=== PATIENT | male | born 1975 | race Caucasian/White ===

== ENCOUNTER 2018-07-20 10:18 | Emergency (ER) | payer OTHER ==
[2018-07-20 10:56] VITALS: BP 128/81; PULSE 80; TEMP 98.3; BMI 24.8
[2018-07-20] MEDS ORDERED: LIDOCAINE 1%/EPI 1:100000 (20 ML MULTI DOSE VIAL) ONE (11:27)
--- NOTE | 2018-07-20 11:40 | PDOC ---
History of Present Illness - General Chief Complaint: Pain Stated Complaint: PERIRECTAL ABSCESS Time Seen by Provider: 07/20/18 11:09 - History of Present Illness Initial Comments: Without significant comorbidities presents for evaluation of painful area around the rectum for the last 3 days. No other associated symptoms. 07/20/18 11:19 Past History - Past Medical History Allergies/Adverse Reactions: Allergies Allergy/AdvReac Type Severity Reaction Status Date / Time No Known Allergies Allergy Verified 07/20/18 10:47 Home Medications: Ambulatory Orders Amox-Tr/K Cl [Augmentin - 875Mg Tablet] 1 tab PO BID #10 tablet 07/20/18 - Suicide/Smoking/Psychosocial Hx Smoking History: Never smoked Hx Alcohol Use: No Drug/Substance Use Hx: No Review of Systems - Review of Systems Integumentary: Yes: See HPI, Lesions All Other Systems: Reviewed and Negative *Physical Exam - Vital Signs Last Vital Signs Temp Pulse Resp BP Pulse Ox 98.3 F 80 16 128/81 100 07/20/18 10:40 07/20/18 10:40 07/20/18 10:40 07/20/18 10:40 07/20/18 10:40 - Physical Exam Comments: 07/20/18 11:19 HEAD: NC/AT EYES: Conjuntiva clear MS: Full ROM in all joints without edema NEUROLOGIC: No gross sensory or motor deficits, NVID SKIN: Normal color and temperature no lesions or rashes There is an erythemic painful fluctuant area at the 5 o'clock position abutting the anal verge with surrounding erythema there is no induration there is mild warmth. Medical Decision Making - Medical Decision Making 07/20/18 11:15 [facility] group [facility] operator notified about pt. ([facility]) 07/20/18 11:40 [facility] preformed I&D *DC/Admit/Observation/Transfer Diagnosis at time of Disposition: Anal abscess - Discharge Dispostion Disposition: HOME Condition at time of disposition: Stable Decision to Admit order: No - Referrals Referrals: Best Marquez MD [Primary Care Provider] - Jerson Mosley MD [Staff Physician] - - Patient Instructions Additional Instructions: Please take the antibiotics as directed. Return to the ER should symptoms worsen. Please wash the area with soap and water FD her first bowel movement. Follow-up with surgery as discussed. Tylenol and Motrin for pain as directed. - Post Discharge Activity
--- NOTE | 2018-07-20 11:44 | CONSULT ---
Consult Consult Specialty:: General Surgery Reason for Consultation:: perianal abscess - History of Present Illness Chief Complaint: perianal abscess History of Present Illness: 42 yo male with no significant PMH presented to fast track ED with painful area around the anus for the last 3 days. No other associated symptoms. has had some hemorrhoids. denies fevers and chill, report feeling weak. no previous endoscopy. we were asked to assess - History Source History Provided By: Patient, Medical Record Limitations to Obtaining History: No Limitations - Past Medical History Gastrointestinal: Yes: Hemorrhoids - Alcohol/Substance Use Hx Alcohol Use: No - Smoking History Smoking history: Never smoked - Social History Place of : [facility] History of Recent Travel: No Home Medications - Allergies Allergies/Adverse Reactions: Allergies Allergy/AdvReac Type Severity Reaction Status Date / Time No Known Allergies Allergy Verified 07/20/18 10:47 - Home Medications Home Medications: Ambulatory Orders Amox-Tr/K Cl [Augmentin - 875Mg Tablet] 1 tab PO BID #10 tablet 07/20/18 Review of Systems - Review of Systems Constitutional: reports: Weakness. denies: Chills, Fever HENT: denies: Difficult Swallowing, Throat Pain Neck: denies: Decreased ROM, Tenderness Cardiovascular: denies: Chest Pain, Palpitations Respiratory: denies: Cough, SOB Gastrointestinal: denies: Abdominal Pain, Constipation, Diarrhea Genitourinary: denies: Discharge, Dysuria Breasts: reports: No Symptoms Reported. denies: Pain Musculoskeletal: denies: Muscle Pain, Muscle Weakness Integumentary: denies: Lesions, Lump, Rash Neurological: denies: Seizure, Tremors, Weakness Endocrine: denies: Unexplained Weight Gain, Unexplained Weight Loss Hematology/Lymphatic: denies: Easily Bruised, Excessive Bleeding Psychiatric: denies: Anxiety, Depression Physical Exam Vital Signs: Vital Signs Temperature 98.3 F 07/20/18 10:40 Pulse Rate 80 07/20/18 10:40 Respiratory Rate 16 07/20/18 10:40 Blood Pressure 128/81 07/20/18 10:40 O2 Sat by Pulse Oximetry (%) 100 07/20/18 10:40 Constitutional: Yes: Well Nourished, No Distress, Calm Eyes: Yes: Conjunctiva Clear, EOM Intact HENT: Yes: Atraumatic, Normocephalic Neck: Yes: Supple, Trachea Midline Cardiovascular: Yes: Regular Rate and Rhythm Respiratory: Yes: Regular, CTA Bilaterally Gastrointestinal: Yes: Normal Bowel Sounds, Soft ...Rectal Exam: Yes: Hemorrhoids/External, Induration (12oclock position anterior perianal 2X2), Sphincter Tone Normal Renal/: No: CVA Tenderness - Left, CVA Tenderness - Right Extremities: No: Cool, Cyanosis Integumentary: No: Jaundice, Rash Neurological: Yes: Alert, Oriented Psychiatric: Yes: Alert, Oriented Problem List - Problems (1) Anal abscess Assessment/Plan: 42yo male presented with a perianal abscess bedside I&D of perianal abscess augmntin X5 days adequate analgesia f/u as instructed Thank you for the opportunity to participate in the care of this patient. Code(s): K61.0 - ANAL ABSCESS (2) Hemorrhoid Code(s): K64.9 - UNSPECIFIED HEMORRHOIDS Qualifiers: Hemorrhoid type: first degree Qualified Code(s): K64.0 - First degree hemorrhoids
--- NOTE | 2018-07-20 11:54 | PROC ---
Incision and Drainage Indication/Location: 12oclock position perianal area Risks and Benefits Explained: Yes Consent on Chart: No Betadine cleansed: Yes Anesthesia: 1% Lidocaine w/ Epi Blade Size: 11 Irrigated with Normal Saline: Yes Iodinated Packin in Plain packing: Yes Sterile Dressing Applied: Yes - Remarks Remarks: 2X2cm tender abscess at 12 oclock in the perianal area. no culture sent. thick fourl swelling pus. completely clean and packed.
== END 2018-07-20 12:03 | disposition home or self-care (01) ==
LOC: JERFT 10:18
PROC: 0D9P0ZZ Drainage of Rectum, Open Approach (ICD-10-PCS; principal; 2018-07-20)
DX: K61.0 Anal abscess (principal); K64.9 Unspecified hemorrhoids
CPT/HCPCS: 99281-25